=== PATIENT | male | born 1980 | race Caucasian/White ===

== ENCOUNTER 2024-06-05 04:31 | Emergency (ER) | payer OTHER, SELFPAY ==
[2024-06-05 04:42] VITALS: BP 156/69; PULSE 103; RESP 16; TEMP 36.8; O2SAT 100; BMI 23.7
[2024-06-05 04:44] VITALS: BP 156/69; PULSE 91; RESP 18; O2SAT 98
[2024-06-05] MEDS: TRIMETH/SULFA 160/800 (DS) TABLET 2 TAB PO (04:54)
--- NOTE | 2024-06-05 05:01 | ED.SKABFB ---
HPI - Skin/Abscess/Foreign Bdy General Chief complaint: Skin/Abscess/Foreign Body Stated complaint: infection on back Time Seen by Provider: 06/05/24 04:35 Mode of arrival: Ambulatory History of Present Illness HPI narrative: 44-year-old male without any significant past medical history comes into the ED from home for evaluation of abscess to the back of his upper thoracic spine, he states that he noticed this is a proximally 5 days ago, states that he noticed it starting as like ?a pimple he states that he has had multiple similar episodes of this that did require antibiotics in the past, he states that last night he got bigger and did pop, since then he has had improved/resolution of pain however still having dischage from the area therefore decided to come into the ED for further evaluation treatment. On exam patient without any focal deficits, not complaining of any other symptoms such as headache visual disturbances chest pain shortness breath fever chills nausea vomiting abdominal pain or any other GI/ symptoms time. Related Data Previous Rx's Medication Instructions Recorded sulfamethoxazole 800 2 tab PO BID 7 days #28 tabs 06/05/24 mg-trimethoprim 160 mg tablet (Bactrim DS) Allergies Allergy/AdvReac Type Severity Reaction Status Date / Time No Known Drug Allergies Allergy Verified 06/05/24 04:53 Review of Systems Review of Systems Narrative: General: Denies fever, chills, weight loss HEENT: Denies headache, eye drainage, eye irritation, head trauma, sore throat, voice change Cardiovascular: Denies any chest pain, palpitations, tachycardia Respiratory: Denies any shortness of breath, cough, wheeze, stridor GI/: Denies any abdominal pain, nausea, vomiting, diarrhea, bright red blood per rectum, melanotic stools, urinary frequency, urinary retention, dysuria, hematuria MSK: Denies any joint pain, muscle pains, swelling Skin: Abscess to the upper back Neuro: Denies any headache, lightheadedness, dizziness, fainting, weakness Psych: Denies SI/HI Patient History Social History Smoking Status: Current every day smoker Smoking Status: Current every day smoker Exam Narrative Exam Narrative: General: Cooperative, well-developed, not in acute distress HEENT: Normocephalic, atraumatic, PERRLA, normal sclera, eyelids normal Neck: Active full range of motion, atraumatic Chest: Normal to inspection, negative crepitus, no overlying erythema ecchymosis Respiratory: Normal respiratory effort, not in acute respiratory distress, clear to auscultation bilaterally negative cough, wheeze, tachypnea, rhonchi, rales Cardiology: Regular rate rhythm negative gallop, murmur, rubs GI/: No tenderness to palpation, soft, non rigid, normal to inspection, exam deferred MSK: Full active range of motion in all 4 extremities, atraumatic, no tenderness to palpation of any bony prominences Skin: 4 x 4 cm abscess to the upper thoracic area, actively draining, surrounding erythema but no crepitus, Neuro: Alert awake oriented x3, moves all 4 extremities spontaneously, cranial nerves intact, able to answer all questions appropriately follows commands appropriately Psych: Cooperative, negative suicidal or homicidal ideations Initial Vital Signs Initial Vital Signs: Vital Signs Temperature 98.3 F 06/05/24 04:42 Pulse Rate 103 H 06/05/24 04:42 Respiratory Rate 16 06/05/24 04:42 Blood Pressure 156/69 H 06/05/24 04:42 Pulse Oximetry 100 06/05/24 04:42 Oxygen Delivery Method Room Air 06/05/24 04:42 Course Orders Ordered: Discontinued Medications Trimethoprim/Sulfamethoxazole (Trimeth/Sulfa 160/800 (Ds) Tablet) 2 tab PO NOW ONE Stop: 06/05/24 04:48 Last Admin: 06/05/24 04:54 Dose: 2 tab Documented By: Amy Vital Signs Vital signs: Vital Signs - 8 hr 06/05/24 04:42 06/05/24 04:44 Temperature 98.3 F Pulse Rate 103 H 91 H Respiratory Rate 16 18 Blood Pressure 156/69 H 156/69 H Pulse Oximetry 100 98 Oxygen Delivery Method Room Air MDM - Skin/Abscess/Foreign Bdy Differential Diagnosis Differential diagnosis: Likely abscess of skin or subcutaneous tissue and cellulitis MDM Narrative Medical decision making narrative: 44-year-old male without any significant past medical history presenting for skin infection/abscess to the back of his truncal region. Patient states he has had history of abscesses in the past, states he has had some to that region as well as to his anterior neck and armpits, states that they had required antibiotics and incision and drainage is previously. He states that today this 1 is the largest he has ever had. States it started proximally 5 days ago as a small pimple, yesterday it popped and has been continuously draining therefore decided come into the ED. On exam there is an open wound with purulent discharge 4 x 4 cm with surrounding erythema but no streaking. I did perform a bedside ultrasound of the area there is no large pocket, cobblestoning was noted diffusely, the abscess does not overlie the vertebra of the cervical and or thoracic spine. Patient without any neurological/focal deficits. Patient will be started on antibiotics, he states that he has had doxycycline in the past but believes it ?did not work therefore will discharge him with Bactrim. He was instructed to follow up with his primary care doctor and wound care, he was given strict return precautions he verbalized understanding of this and agrees to being discharged home with outpatient follow up Discharge Plan Departure Patient Disposition: Home Clinical Impression: Abscess of skin or subcutaneous tissue Instructions: DI for Skin Abscess Activity Restrictions/Additional Instructions: Please follow up with your primary care doctor Please read the discharge instructions sheet carefully and bring all papers to all doctor follow-up visits, as it may contain information that your doctor may want to see. Disease processes change and evolve, if your symptoms worsen or if you develop any new symptoms that are concerning to you please return for evaluation. Your evaluation today does not show any evidence of any life-threatening/serious illnesses requiring admission to the hospital or surgery. Please follow-up with your doctor for re-evaluation in approximately 1 day. Seek immediate medical attention for any worrisome symptoms. *If you do not have a primary care provider please contact the [facility] Resource line at [phone]. They will ask some questions about your medical history and help get you set up with a doctor in the community. Prescriptions: New sulfamethoxazole-trimethoprim [Bactrim DS] 800-160 mg tablet 2 tab PO BID 7 Days Qty: 28 0RF Stand Alone Forms: Patient Portal/API/Survey
== END 2024-06-05 05:07 | disposition home or self-care (01) ==
PROVIDERS: Emergency Provider Student in an Organized Health Care Education/Training Program
DX: L02.212 Cutaneous abscess of back [any part, except buttock and flank] (principal)
CPT/HCPCS: 99283